=== PATIENT | male | born 1950 | race Caucasian/White ===

== ENCOUNTER 2022-12-28 10:26 | Day surgery (SDC) | payer MEDICARE, SELFPAY ==
[2022-12-28 10:44] VITALS: BP 134/79; PULSE 60; RESP 16; TEMP 36.7; O2SAT 100
[2022-12-28] MEDS: TETRACAINE 0.5% OPHTH 1 DROP EYE-LEFT ×2 (10:45→10:50)
[2022-12-28] MEDS: KETOROLAC OPHTH 0.5% 1 DROP EYE-LEFT ×3 (10:45→10:55)
[2022-12-28] MEDS: SODIUM CHLORIDE 0.9 % (FLUSH) 10 ML SYRINGE IVF (10:50)
[2022-12-28 11:01] VITALS: BMI 23.0
--- NOTE | 2022-12-28 11:04 | SUR.PREOP ---
HOME COVID TEST NEGATIVE
[2022-12-28] MEDS: TETRACAINE 0.5% OPHTH 2 DROP EYE-LEFT (11:32)
[2022-12-28] MEDS: BALANCED SALT IRRIG SOLN 15 ML EYE-LEFT (11:37)
--- NOTE | 2022-12-28 11:39 | P.ANES_ITS ---
Anesthesia Charges Start Date/Time Anesthesia Start Date: 12/28/22 Anesthesia Start Time: 11:28 Stop Date/Time Anesthesia Stop Date: 12/28/22 Anesthesia Stop Time: 12:05 Summary Extremes of Age - Over 70 or under 1: DIGITAL ASSET COORDINATOR
--- NOTE | 2022-12-28 12:04 | W.PM.OPTPROC ---
Procedure Note Date of procedure: 12/28/22 Will [facility] bill your pro fee for this procedure?: Yes Procedure Description: SURGEON: Adilia Altamirano MD PREOPERATIVE DIAGNOSIS: Nuclear sclerotic cataract, left eye. POSTOPERATIVE DIAGNOSIS: Nuclear sclerotic cataract, left eye. NAME OF OPERATION: Phacoemulsification of cataract with posterior chamber intraocular lens implantation in the left eye. ANESTHESIA: Topical. ESTIMATED BLOOD LOSS: Less than 2 cc. COMPLICATIONS: None. PATHOLOGY SPECIMEN: None. INDICATIONS: See consult note for details. The risks, benefits and alternatives of the procedure were explained to the patient, who elected to proceed and signed informed consent to do so. PROCEDURE: The patient was brought to the pre-holding area where the left eye was identified as the operative eye. I placed my initials above this eye. The patient received eye drops consisting of 0.5% tetracaine, 1% tropicamide, 10% phenylephrine, and 0.5% ketorolac. The patient was then brought to the operating room where the left eye was again identified as the operative eye. The eye was prepped with Betadine and draped in the usual sterile ophthalmic fashion. A #15 super-sharp blade was used to create a paracentesis site. 1% non-preserved intracameral lidocaine was injected into the anterior chamber. Endocoat was injected into the anterior chamber. A 2.4 mm keratome was used to create a three-plane self-sealing incision 1 mm anterior to the temporal limbus. A cystotome was used to create an anterior capsular leaflet. The Utrata forceps were used to extend this to form a continuous curvilinear capsulorrhexis. Hydrodissection was performed. The cataract was removed with phacoemulsification using the [id number]-tus-nssgzhn technique. The irrigation and aspiration tip was used to remove the remaining cortex. Healon was injected into the capsular bag. An JADYE ZCB00 intraocular lens of 19.5 diopters was injected into the capsular bag. The irrigation and aspiration tip was used to remove the remaining viscoelastic. Balanced salt solution on a cannula was used to hydrate the wound, and the wound was found to be watertight. The pupil was noted to be round. DISPOSITION: The patient was taken to the recovery room and discharged to home in stable condition. The patient was instructed to call me or go to the emergency department with any sudden change, including dramatic loss of vision, severe pain in the eye or eyebrow region, nausea, or vomiting. The patient will follow up in the clinic tomorrow morning. Surgeon: Adilia Altamirano MD
[2022-12-28 12:08] VITALS: BP 136/84; PULSE 57; RESP 16; TEMP 36.6; O2SAT 97
--- NOTE | 2022-12-28 12:12 | W.ANESCHARGE ---
Anesthesia Charges Start Date/Time Anesthesia Start Date: 12/28/22 Anesthesia Start Time: 11:28 Stop Date/Time Anesthesia Stop Date: 12/28/22 Anesthesia Stop Time: 12:05 Summary Extremes of Age - Over 70 or under 1: MDA
== END 2022-12-28 12:40 | disposition home or self-care (01) ==
PROVIDERS: PCP Family Medicine; Visit Provider Ophthalmology
PROC: (CPT 66984; principal; 2022-12-28 10:30)
DX: H25.12 Age-related nuclear cataract, left eye (principal)
CPT/HCPCS: 66984; 00142; 99100; A9270; J2250; J3010; V2632

== ENCOUNTER 2023-01-11 06:44 | Day surgery (SDC) | payer MEDICARE, SELFPAY ==
[2023-01-11] MEDS: KETOROLAC OPHTH 0.5% 1 DROP EYE-RIGHT ×3 (06:58→07:33)
[2023-01-11] MEDS: TETRACAINE 0.5% OPHTH 1 DROP EYE-RIGHT ×2 (06:58→07:13)
[2023-01-11] MEDS: SODIUM CHLORIDE 0.9 % (FLUSH) 10 ML SYRINGE IVF (07:15)
[2023-01-11 07:22] VITALS: BMI 23.1
[2023-01-11 07:24] VITALS: BP 138/79; PULSE 54; RESP 16; TEMP 37.1; O2SAT 98
--- NOTE | 2023-01-11 07:34 | SUR.PREOP ---
Patient provided home covid negative results to RN. The eye drops brought by the patient (Ketorolac and Prednisolone) are examined and I have determined they are labeled by the patient's pharmacy for this patient as prescribed by the surgeon. The bottles are intact, recently obtained and appear to be correct. Chalo BEDOLLA
--- NOTE | 2023-01-11 07:50 | P.ANES_ITS ---
Anesthesia Charges Start Date/Time Anesthesia Start Date: 01/11/23 Anesthesia Start Time: 07:49 Stop Date/Time Anesthesia Stop Date: 01/11/23 Anesthesia Stop Time: 08:23 Summary Extremes of Age - Over 70 or under 1: CALL CENTER RN
[2023-01-11] MEDS: TETRACAINE 0.5% OPHTH 2 DROP EYE-RIGHT (07:51)
[2023-01-11] MEDS: BALANCED SALT IRRIG SOLN 15 ML EYE-RIGHT (07:56)
[2023-01-11 08:20] VITALS: BP 132/85; PULSE 54; RESP 16; TEMP 36.7; O2SAT 100
--- NOTE | 2023-01-11 09:06 | P.OPTPRC_ITS ---
Procedure Note Date of procedure: 01/11/23 [address] [facility] bill your pro fee for this procedure?: Yes Procedure Description: SURGEON: Adilia Altamirano MD PREOPERATIVE DIAGNOSIS: Nuclear sclerotic cataract, right eye. POSTOPERATIVE DIAGNOSIS: Nuclear sclerotic cataract, right eye. NAME OF OPERATION: Phacoemulsification of cataract with posterior chamber intraocular lens implantation in the right eye. ANESTHESIA: Topical. ESTIMATED BLOOD LOSS: Less than 2 cc. COMPLICATIONS: None. PATHOLOGY SPECIMEN: None. INDICATIONS: See consult note for details. The risks, benefits and alternatives of the procedure were explained to the patient, who elected to proceed and s igned informed consent to do so. PROCEDURE: The patient was brought to the pre-holding area where the right eye was identified as the operative eye. I placed my initials above this eye. The patient received eye drops consisting of 0.5% tetracaine, 1% tropicamide, 10% phenylephrine, and 0.5% ketorolac. The patient was then brought to the operating room where the right eye was again identified as the operative eye. The eye was prepped with Betadine and draped in the usual sterile ophthalmic fashion. A #15 super-sharp blade was used to create a paracentesis site. 1% non-preserved intracameral lidocaine was injected into the anterior chamber. Endocoat was injected into the anterior chamber. A 2.4 mm keratome was used to create a three-plane self-sealing incision 1 mm anterior to the temporal limbus. A cystotome was used to create an anterior capsular leaflet. The Utrata forceps were used to extend this to form a continuous curvilinear capsulorrhexis. Hydrodissection was performed. The cataract was removed with phacoemulsification using the shtlsu-etd-obfswgh technique. The irrigation and aspiration tip was used to remove the remaining cortex. Healon was injected into the capsular bag. An JAYDE ZCB00 intraocular lens of 18.0 diopters was injected into the capsular bag. The irrigation and aspiration tip was used to remove the remaining viscoelastic. Balanced salt solution on a cannula was used to hydrate the wound, and the wound was found to be watertight. The pupil was noted to be round. DISPOSITION: The patient was taken to the recovery room and discharged to home in stable condition. The patient was instructed to call me or go to the emergency department with any sudden change, including dramatic loss of vision, severe pain in the eye or eyebrow region, nausea, or vomiting. The patient will follow up in the clinic tomorrow morning. Surgeon: Adilia Altamirano MD
== END 2023-01-11 08:43 | disposition home or self-care (01) ==
PROVIDERS: PCP Family Medicine; Visit Provider Ophthalmology
PROC: (CPT 66984; principal; 2023-01-11 06:45)
DX: H25.11 Age-related nuclear cataract, right eye (principal)
CPT/HCPCS: 66984; 142; 99100; A9270; J2250; J3010; V2632

== ENCOUNTER 2024-03-20 10:23 | Inpatient (IN) | payer MEDICARE, SELFPAY ==
--- OUTSIDE RECORDS SUMMARY | 2024-03-20 10:35 | XMS_ITS | Clinical Summary ---
Author Name Unknown Organization [facility] Address [address] [place] [address] Care Team Providers Care Refueling Ramp Attendant Name Role Phone Shin Carrington Primary Care Provider Unavailab le Source Comments You are receiving this document as you are listed as the primary care provider,follow-up provider, or the patient has been referred to you for consultation.This is in compliance with the Medicare andMedicaid EHR Incentive Program,which states Providers who transition their patient to another setting of careor provider of care or refers their patient to another provider of care shouldprovide summary care record for each transition of care or referral. 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 01/08/2024 Telephone [facility] [address] [place] [address] Harika Ardon Clinical Research from Last 3 Months Social History Tobacco Use Types Packs/Day Years Used Date Smoking Tobacco: Never Assessed Sex and Gender Information Value Date Recorded Sex Assigned at Not on file Gender Identity Not on file Sexual Orientation Not on file Plan of Treatment Health Maintenance Due Date Last Done Comments Colon Cancer Screening Plan Due 1950 Hep C Screening (Preventive Services) 1950 Adult Preventive Visit 1966 COVID-19 Vaccine ( season) 2024 09/05/2023, 04/17/2023, 07/29/2022, Additional history exists DTaP/Tdap/Td (3 - Tdap) 12/21/2032 12/21/19 23, 08/14/2012, 07/07/2008, Additional history exists HepA Aged Out 05/21/1999, 11/10/1997 No lo nger eligible based on patient's age to complete this topic Zoster/Shingles Completed 09/25/2020, 02/2020, 08/14/2012 Pneumococcal 65+ Yrs Completed 12/19/2022, 08/29/2016, 12/17/2015 Influenza Completed 09/05/2023, 07/14, 09/03/2021, Additional history exists HepB Aged Out No longer eligi ble based on patient's age to complete this topic Hib Aged Out No longer eligi ble based on patient's age to complete this topic IPV (Polio) Aged Out No longer eligi ble based on patient's age to complete this topic MCV4 Aged Out No longer eligi ble based on patient's age to complete this topic Care Teams Refueling Ramp Attendant Relationship Specialty Start Date End Date Shin Carrington PCP - General 02/14/11
--- OUTSIDE RECORDS SUMMARY | 2024-03-20 10:36 | XMS_ITS | Encounter Summary ---
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 This is the gene test results visit. He is participating by telephone. His Daisy ws present as well. Adverse events since the last visit include: none. I believe that the patient is cognitively capable of providing consent for continued participation in the study. Other comments about medication use or study participation: none. Other life events of note: none Objective: Examination procedures were completed according to the research protocol. Highlights include: the patient was not examined, other than to note that he seemed to understand the meaning of the results for self and other family members. The gene test results were normal. Impression/Plan: Parkinson's disease, not due to a mutation in GBA, LRRK2, SNCA, stewart, PARK7, PINK1, or VPS35. The patient has completed participation in this study. Contact Preeti Singh (research nurse) at if there are any questions about this patient, the study medication, or participation inthe research study. 10 min tt, 6 min with the pt Copy: Dr. 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
--- OUTSIDE RECORDS SUMMARY | 2024-03-20 10:36 | XMS_ITS | Clinical Summary ---
Author Name Unknown Organization [facility] Address [place], [place] [address] Care Team Providers Care It Sales Representative Name Role Phone Shin Stack MD Primary Care Provider Allergies No known active allergies Medications Medication Sig Dispensed Refills Start Date End Date Status multivitamins-minerals- lutein (CENTRUM SILVER) Tab tablet Take 1 tablet by mouth once daily. 0 08/14/2012 Active amLODIPine (NORVASC) 5 mg tabletIndications:Essen tial hypertension Take 1 Tablet (5 mg) by mouth once daily. 90 Tablet 3 05/23/2023 Active carbidopa-levodopa, 25-100 mg, (SINEMET 25-100) 25-100 mg tabletIndications:Parki nson's disease without dyskinesia, unspecified whether manifestations fluctuate (HC) TAKE ONE TABLET BY MOUTH 4 TIMES DAILY 120 Tablet 3 12/05/2023 Active Active Problems Problem Noted Date Diagnosed Date Parkinson's disease 11/13/2022 Superficial thrombophlebitis : 05/17/2022 right SVG knee to ankle. 05/17/2022 Essential hypertension 02/25/2021 Sensorineural hearing loss, bilateral 06/20/2013 SBO, Laparotomy in [place] 2008. 06/18/2009 Overview: EGD 06/2009 normal Resolved Problems Problem Noted Date Diagnosed Date Resolved Date Routine adult health maintenance 09/18/2019 02/25/2021 Routine general medical exam ination at a health care facility 09/18/2019 02/25/2021 Overview: Colonoscopy 09/2019 normal, repeat in 10 years Encounters Date Type Department Care Team Description 03/20/2024 8:30 AM CDT Ancillary Procedure [facility] [address] [place] [address] Arrived 03/20/2024 8:15 AM CDT Orders Only [facility] [address] [place] [address] Lab, [place] Lab 03/19/2024 4:00 PM CDT Office Visit [facility] [address] [place] [address] Haritha Quiñonez MD Consult (Right inguinal hernia referred by Sreekanth Vasquez) 03/19/2024 Travel 03/13/2024 3:45 PM CDT Office Visit [facility] [address] [place] [address] Shin Stack MD Lump (In groin area, left side, noticed about 5 weeks ago, getting bigger, no pain) 03/13/2024 Travel 03/08/2024 Travel 01/30/2024 9:40 AM CDT Office Visit [facility] [place] [facility] [address] [place] [address] Jesús Knowles MD Follow Up (Follow up tremor ) 01/30/2024 Travel from Last 3 Months Immunizations Name Administration Dates Next Due Amb Influenza, Inact (High-d ose) (Flu Clinic Only) 08/22/2016,09/12/2014 COVID-19 Vaccine Spikevax (M oderna 50mcg/0.5mL) 12YO+ [id number] Formula PF 03/13/2024,09/05/2023 COVID-19 vaccine (Moderna 10 0mcg/0.5mL) PF, MDV 01/26/2021,12/29/2020 COVID-19 vaccine (Moderna 50 mcg/0.5mL) 12YO+ BIVALENT PF, MDV 04/17/2023,07/29/2022 Hepatitis A (Adult) 05/21/1999,11/10/1997 Hepatitis B (Adult) 03/26/2012,10/24/2011,2010 Influenza A (H1N1), Inactivated 11/24/2009 Influenza, High-dose Inactivated 08/22/2016,07/2015,09/12/2014 Influenza, High-dose Quadriv alent Inactivated 09/03/2021 Influenza, IIV3 (Age 6-35 mos) 09/23/2011 Influenza, IIV3 (Age >=3 years) 08/14/2012,09/23 Influenza, Inactivated AIIV4 (Age 65+ Years) Preserv Free 09/05/2023,07/29/2022,08/14/2020 Influenza, Inactivated IIV3 (Age 65+ Years) Preserv Free 08/21/2019,07/28/2017 Pneumococcal Conj 20-valent (Prevnar 20) 023 Pneumococcal Poly,23-Valent (Pneumovax) 08/29/20 16 Pneumococcal conj 13-Valent (Prevnar 13) 016 RSV, Recombinant ADJ Reconst ituted (Arexvy 120MCG/0.5mL) 10/16/2023 Td (Age >=7 Years) 08/13/1997 Td, Preservative Free (age >= 7 Years) 8 Tdap 12/21/2022,08/14/2012 Typhoid (injectable) 03/02/2018 Typhoid (oral) 09/02/2011 Yellow Fever 12/31/2004 Zoster (Shingrix-RZV, recombinant) 09/25/2020, Zoster (Zostavax-ZVL, live) 08/14/2012 Family History Medical History Relation Name Comments Psychiatric illness Brother 1 bipolar Cancer-prostate Brother 2 Parkinsonism Brother 3 at 83 Cancer Father Stomach in his 60's Heart Disease Father [place] in his 60's Other Mother liver ca Anesthesia Problem No Family History Cancer-colon No Family History Diabetes No Family History Relation Name Status Comments Brother 1 Brother 2 Brother 3 Father Mother (Age 80's) multi-or krystle failure Social History Tobacco Use Types Packs/Day Years Used Date Smoking Tobacco: Never Smokeless Tobacco: Never Tobacco Cessation:Counseling Given: No Alcohol Use Standard Drinks/Week Comments Yes 5 (1 standard drink = 0.6 oz pur e alcohol) 5 beers per week PHQ-2 Answer Date Recorded PHQ-2 TOTAL SCORE 0 05/23/2023 Social Connections Answer Date Recorded Frequency of Communication with Friends and Fami ly 0 05/23/2023 Financial Resource Strain Answer Date R ecorded Difficulty of Paying Living Expenses 3 05/23/2023 Difficulty of Paying Living Expenses Not on file 05/23/2023 Food Insecurity Answer Date Recorded Worried About Running Out of Food in the Last Ye ar 1 05/23/2023 Transportation Needs Answer Date Record ed Lack of Transportation (Medical) 1 05/23/2023 Housing Stability Answer Date Recorded Unable to Pay for Housing in the Last Year 1 05/23/2023 Sex and Gender Information Value Date Recorded Sex Assigned at Male 01/12/2022 9:48 AM CRYSTALIZER TENDER Gender Identity Male 01/12/2022 9:48 AM CRYSTALIZER TENDER Sexual Orientation Choose not to disclose 2021 9:48 AM CRYSTALIZER TENDER Obstetrics History Last Filed Vital Signs Vital Sign Reading Time Taken Comments Blood Pressure 137/71 03/19/2024 4:19 PM CDT Pulse 58 03/19/2024 4:19 PM CDT Temperature 36.8 ??C (98.2 ??F) 09/30/2020 1:31 PM CS T Respiratory Rate 18 11/03/2014 7:54 AM CRYSTALIZER TENDER Oxygen Saturation 97% 03/19/2024 4:19 PM CDT Inhaled Oxygen Concentration - - Weight 67.1 kg (148 lb) 03/19/2024 4:19 PM CDT w ith shoes Height 174.7 cm (5' 8.78) 05/23/2023 2:09 PM CD T Body Mass Index 22 05/23/2023 2:09 PM CDT Plan of Treatment Upcoming Encounters Date Type Department Care Team (Late st Contact Info) Description 05/17/2024 8:00 AM CDT Orders Only [facility] [address] [place] [address] [place], [place] 05/24/2024 2:55 PM CDT Office Visit [facility] [address] [facility] [place] [address] Shin Stack MD [address] [facility] [place] [address] 10/01/2024 9:00 AM CRYSTALIZER TENDER Office Visit [facility] [place] [facility] [address] [place] [address] Jesús Knowles MD [address] [place] [address] Health Maintenance Due Date Last Done Comments BMI (ht and wt on same day) for age 18+ 05/23/2024 05/23/2023, 12/19/2022, 03/02/2022, Additional history exists Depression screening for age 12+ 05/23/2024 05/23/2023, 03/02/2022, 02/25/2021, Additional history exists Medicare Wellness for age 65+ 05/23/2024, 03/02/2022, 02/25/2021, Additional history exists Influenza for age 65+ 07/14/2024 09/05/2023 , 07/29/2022, 09/03/2021, Additional history exists Lipids for age 45-75 05/23/2028 05/23/2023, 02/25/2021, 01/01/2020, Additional history exists Colonoscopy through age 75 09/18/202909/18, 09/18/2019, 09/18/2019, Additional history exists Tetanus booster 12/21/2032 12/21/2022, 12/2011, 07/07/2008, Additional history exists Hepatitis C screening for ag e 18-79 Completed 08/10/2017 Zoster (shingles) series for age 50+ Completed 09/25/2020, 07/17/2020, 08/14/2012 Pneumococcal series for age 65+ Completed 12/19/2022, 08/29/2016, 12/17/2015 Tdap Completed 12/21/2022, 08/14/2012 COVID-19 vaccine series Completed 03/13/20, 09/05/2023, 04/17/2023, Additional history exists Procedures Procedure Name Priority Date/Time Associated Diagnosis Comments CT ABDOMEN PELVIS W IESHA 03/20/2024 9 :24 AM CDT Abdominal pain, unspecified abdominal location CREATININE,ISTAT Routine 03/20/2024 8:50 AM CDT Observation or evaluation for suspected condition CBC WITH AUTO DIFFERENTIAL Routine 03/19/2024 5:06 PM CDT Abdominal pain, unspecified abdominal location CBC WITH AUTO DIFFERENTIAL Routine 03/19/2024 5:06 PM CDT Abdominal pain, unspecified abdominal location LIPID PANEL W REFLEX MEASURED LDL Routine 05/23/2023 3:01 PM CDT Lipid screening COLONOSCOPY 09/18/2019 8:31 AM CRYSTALIZER TENDER ANTI HCV Routine 08/10/2017 7:49 AM CDT Encounter for hepatitis C screening test for low risk patient from Last 3 Months or Most Recently Relevant to Health Maintenance Results * CT ABDOMEN PELVIS W (03/20/2024 9:24 AM CDT) Anatomical Region Laterality Modality Abdomen, Pelvis, AORTA, LIVER, SPLEEN Computed Tomography 03/20/2024 9:52 AM CDT Addenda Addendum by Eulalia Perez DO on 03/20/2024 10:13 AM CDT Indication: Abdominal pain. Technique: CT of the abdomen and pelvis was performed following the administration of 100 mL Omnipaque 350. 24 ounces of water was given by mouth. Comparison: None available. Findings: Visualized lung bases: Clear. Liver: Mild hepatic steatosis. Too small to characterize hypodensities within both hepatic lobes. There are similar appearing lobulated hypodense lesions within hepatic segment 2 measuring 4.0 x 4.2 cm as well as within hepatic segment 8 inferiorly measuring up to 9 mm. Peripheral nodular discontinuous enhancement is seen within these lesions compatible with hemangiomas. Indeterminate hypodense lesion between the middle and right hepatic veins in segment 8 measuring 1.3 cm. There is suggestion of punctate peripheral nodular discontinuous enhancement involving this lesion as well. Hyperdense gallstones within the gallbladder neck and body. No pericholecystic inflammatory changes. No biliary ductal dilation. Pancreas: Unremarkable. Spleen: Unremarkable. Adrenals: Unremarkable. Kidneys: Symmetric renal enhancement. Left interpolar renal cyst. No nephrolithiasis or hydronephrosis. Aorta/IVC: Mild atherosclerotic aortic calcifications with tortuous abdominal aorta. No aortic aneurysm. Lymph nodes: No lymphadenopathy. Bowel: Moderate colonic fecal burden. Normal appendix. There is a small loop of ileum in the mid abdomen with tapering proximal and distal ends in close proximity to 1 another (series 2, image 72 and series 4 images 34-44). Upstream small bowel is dilated measuring up to 3.5 cm. No appreciable mesenteric edema. Trace pelvic free fluid. No intraperitoneal free air. No definite evidence of bowel wall hypoenhancement. Pelvis: Enlarged prostate measuring 6 cm in transverse dimension. Bones/body wall: Mild multilevel degenerative disc disease. Impression: 1. Dilated loops ileum in the mid and lower abdomen upstream to a focal loop of bowel with tapered proximal and distal portions in close proximity to one another. Findings are concerning for small bowel obstruction with possible closed loop morphology. Recommend Emergency Department evaluation with surgical consultation for further management. 2. Hepatic hemangiomas with indeterminate 1.3 cm lesion in hepatic segment 8, which may represent an additional hemangioma. Recommend correlation with prior imaging to determine stability, if available. Otherwise, nonemergent liver protocol CT or MRI is recommended. 3. Additional chronic/incidental findings as described. Please note that all CT scans at this facility use dose modulation, iterative reconstruction, and/or weight-based dosing when appropriate to reduce radiation dose to as low as reasonably achievable. Dictated by Eulalia Perez MD @ 03/20/2024 9:52:35 AM ----- ADDENDUM ----- Discussed Impression [address] Quiñonez on 03/20/2024 at 10:05 a.m. Dictated by Eulalia Perez MD @ May ??2023 10:13AM (Electronically Signed) Narrative 03/20/2024 9:52 AM CDT For Patients: ??As a result of the Century Cures Act, medical imaging exams and procedure reports are released immediately into your electronic medical record. ??You may view this report before your referring provider. ??If you have questions, please contact your health care provider. Indication: Abdominal pain. Technique: CT of the abdomen and pelvis was performed following the administration of 100 mL Omnipaque 350. 24 ounces of water was given by mouth. Comparison: None available. Findings: Visualized lung bases: Clear. Liver: Mild hepatic steatosis. Too small to characterize hypodensities within both hepatic lobes. There are similar appearing lobulated hypodense lesions within hepatic segment 2 measuring 4.0 x 4.2 cm as well as within hepatic segment 8 inferiorly measuring up to 9 mm. Peripheral nodular discontinuous enhancement is seen within these lesions compatible with hemangiomas. Indeterminate hypodense lesion between the middle and right hepatic veins in segment 8 measuring 1.3 cm. There is suggestion of punctate peripheral nodular discontinuous enhancement involving this lesion as well. Hyperdense gallstones within the gallbladder neck and body. No pericholecystic inflammatory changes. No biliary ductal dilation. Pancreas: Unremarkable. Spleen: Unremarkable. Adrenals: Unremarkable. Kidneys: Symmetric renal enhancement. Left interpolar renal cyst. No nephrolithiasis or hydronephrosis. Aorta/IVC: Mild atherosclerotic aortic calcifications with tortuous abdominal aorta. No aortic aneurysm. Lymph nodes: No lymphadenopathy. Bowel: Moderate colonic fecal burden. Normal appendix. There is a small loop of ileum in the mid abdomen with tapering proximal and distal ends in close proximity to 1 another (series 2, image 72 and series 4 images 34-44). Upstream small bowel is dilated measuring up to 3.5 cm. No appreciable mesenteric edema. Trace pelvic free fluid. No intraperitoneal free air. No definite evidence of bowel wall hypoenhancement. Pelvis: Enlarged prostate measuring 6 cm in transverse dimension. Bones/body wall: Mild multilevel degenerative disc disease. Impression: 1. Dilated loops ileum in the mid and lower abdomen upstream to a focal loop of bowel with tapered proximal and distal portions in close proximity to one another. Findings are concerning for small bowel obstruction with possible closed loop morphology. Recommend Emergency Department evaluation with surgical consultation for further management. 2. Hepatic hemangiomas with indeterminate 1.3 cm lesion in hepatic segment 8, which may represent an additional hemangioma. Recommend correlation with prior imaging to determine stability, if available. Otherwise, nonemergent liver protocol CT or MRI is recommended. 3. Additional chronic/incidental findings as described. Please note that all CT scans at this facility use dose modulation, iterative reconstruction, and/or weight-based dosing when appropriate to reduce radiation dose to as low as reasonably achievable. Dictated by Eulalia Perez MD @ 03/20/2024 9:52:35 AM (Electronically Signed) Procedure Note Eulalia Perez, DO - 03/20/2024 For Patients: As a result of the Cures Act, medical imagingexams and procedure reports are released immediately into your electronicmedical record. You may view this report before your referring provider.If you have questions, please contact your health care provider. Indication: Abdominal pain. Technique: CT of the abdomen and pelvis was performed following the administration of100 mL Omnipaque 350. 24 ounces of water was given by mouth. Comparison: None available. Findings: Visualized lung bases: Clear. Liver: Mild hepatic steatosis. Too small to characterize hypodensitieswithin both hepatic lobes. There are similar appearing lobulated hypodenselesions within hepatic segment 2 measuring 4.0 x 4.2 cm as well as withinhepatic segment 8 inferiorly measuring up to 9 mm. Peripheral nodulardiscontinuous enhancement is seen within these lesions compatible withhemangiomas. Indeterminate hypodense lesion between the middle and righthepatic veins in segment 8 measuring 1.3 cm. There is suggestion ofpunctate peripheral nodular discontinuous enhancement involving thislesion as well. Hyperdense gallstones within the gallbladder neck andbody. No pericholecystic inflammatory changes. No biliary ductal dilation. Pancreas: Unremarkable. Spleen: Unremarkable. Adrenals: Unremarkable. Kidneys: Symmetric renal enhancement. Left interpolar renal cyst. Nonephrolithiasis or hydronephrosis. Aorta/IVC: Mild atherosclerotic aortic calcifications with tortuousabdominal aorta. No aortic aneurysm. Lymph nodes: No lymphadenopathy. Bowel: Moderate colonic fecal burden. Normal appendix. There is a smallloop of ileum in the mid abdomen with tapering proximal and distal ends inclose proximity to 1 another (series 2, image 72 and series 4 -93). Upstream small bowel is dilated measuring up to 3.5 cm. Noappreciable mesenteric edema. Trace pelvic free fluid. No intraperitonealfree air. No definite evidence of bowel wall hypoenhancement. Pelvis: Enlarged prostate measuring 6 cm in transverse dimension. Bones/body wall: Mild multilevel degenerative disc disease. Impression: 1. Dilated loops ileum in the mid and lower abdomen upstream to a focalloop of bowel with tapered proximal and distal portions in close proximityto one another. Findings are concerning for small bowel obstruction withpossible closed loop morphology. Recommend Emergency Department evaluationwith surgical consultation for further management. 2. Hepatic hemangiomas with indeterminate 1.3 cm lesion in hepatic segment8, which may represent an additional hemangioma. Recommend correlationwith prior imaging to determine stability, if available. Otherwise,nonemergent liver protocol CT or MRI is recommended. 3. Additional chronic/incidental findings as described. Please note that all CT scans at this facility use dose modulation,iterative reconstruction, and/or weight-based dosing when appropriate toreduce radiation dose to as low as reasonably achievable. Dictated by Eulalia Perez MD @ 03/20/2024 9:52:35 AM (Electronically Signed) Haritha Quiñonez MD CT * (ABNORMAL) CREATININE,ISTAT (03/20/2024 8:50 AM CDT) Pathologist [facility] CREATININE, POCT 1.70(H) 0.57 - 1.11 mg/dL 03/20/2024 8:52 AM CDT [facility] Comment:Caution: Patients ta collin Hydroxyurea have falsely increased iStat Creatinine results. Verify creatinine results ordering a Creatinine (67923.2) eGFR 42(L) >90 mL/min/1.7 3m2 03/20/2024 8:52 AM CDT [facility] Comment:As of 2022, eG FR is calculated by the CKD-EPI creatinine equation without race adjustment. eGFR can be influenced by muscle mass, exercise, and diet. The reported eGFR is an estimation only and is only applicable if the renal function is stable. Blood BLOOD SPECIMEN / Unknown 03/20/2024 8:50 AM CDT 03/20/2024 8:52 AM CDT Haritha Quiñonez MD CHEMISTRY [facility] [address] [place] [address], [place] [phone] * (ABNORMAL) CBC WITH AUTO DIFFERENTIAL (03/19/2024 5:06 PM CDT) [facility] WHITE BLOOD COUNT 9.8 4.5 - 11.0 thou/cu mm 03/19/2024 5:15 PM CDT [facility] RED BLOOD COUNT 4.99 4.30 - 5.90 mil/cu mm 03/19/2024 5:15 PM CDT [facility] HEMOGLOBIN 15.7 13.5 - 17.5 g/dL 03/19/2024 5:15 PM CDT [facility] HEMATOCRIT 45.4 37.0 - 53.0 % 03/19/2024 5:15 PM CDT [facility] MCV 91 80 - 100 fL 03/19/2024 5:15 PM CDT [facility] MCH 31.5 26.0 - 34.0 pg 03/19/2024 5:15 PM CDT [facility] MCHC 34.6 32.0 - 36.0 g/dL 03/19/2024 5:15 PM CDT [facility] RDW 13.0 11.5 - 15.5 % 03/19/2024 5:15 PM CDT [facility] PLATELET COUNT 201 140 - 440 thou/cu mm 03/19/2024 5:15 PM CDT [facility] MPV 9.5 6.5 - 11.0 fL 03/19/2024 5:15 PM CDT [facility] % NEUT 83.9 % 03/19/2024 5:15 PM CDT [facility] % LYMPH 11.2 % 03/19/2024 5:15 PM CDT [facility] % MONO 4.4 % 03/19/2024 5:15 PM CDT [facility] % EOS 0.2 % 03/19/2024 5:15 PM CDT [facility] % BASO 0.3 % 03/19/2024 5:15 PM CDT [facility] ABSOLUTE NEUTROPHILS 8.2(H) 1.7 - 7.0 thou/cu mm 03/19/2024 5:15 PM CDT [facility] ABSOLUTE LYMPHOCYTES 1.1 0.9 - 2.9 thou/cu mm 03/19/2024 5:15 PM CDT [facility] ABSOLUTE MONOCYTES 0.4 <0.9 thou/cu mm 03/19/2024 5:15 PM CDT [facility] ABSOLUTE EOSINOPHILS 0.0 <0.5 thou/cu mm 03/19/2024 5:15 PM CDT [facility] ABSOLUTE BASOPHILS 0.0 <0.3 thou/cu mm 03/19/2024 5:15 PM CDT [facility] Blood BLOOD SPECIMEN / Unknown Venipuncture / Unknown 03/19/2024 5:06 PM CDT 03/19/2024 5:06 PM CDT Haritha Quiñonez MD HEMATOLOGY [facility] [address] [place] [address], [place] [phone] * LIPID PANEL W REFLEX MEASURED LDL (05/23/2023 3:01 PM CDT) CHOLESTEROL,TOTAL 186 100 - 199 mg/dL 05/24/2023 2:02 AM T [facility] Comment: Cholesterol, Total Reference Ranges Desirable <200 mg/dL Borderline 200-239 mg/dL High >=240 mg/dL TRIGLYCERIDES 99 <150 mg/dL 05/24/2023 2:02 AM T [facility] HDL CHOLESTEROL 57 >40 mg/dL 2:02 AM [facility] NON-HDL CHOLESTEROL 129 <145 mg/dl 05/24/2023 2:02 AM T [facility] CHOL/HDL RATIO 3.26 <4.50 05/24/2023 2:02 AM T [facility] LDL CHOLESTEROL 109 <=130 mg/dL 05/24/2023 2:02 AM T [facility] VLDL CHOLESTEROL 20 <=30 mg/dL 05/24/2023 2:02 AM [facility] PROVIDER ORDERED STATUS RANDOM 05/24/2023 2:02 AM CDT [facility] Blood BLOOD SPECIMEN / Unknown Venipuncture / Unknown 05/23/2023 3:01 PM CDT 05/23/2023 3:02 PM CDT Shin Stack MD CHEMISTRY [facility] [address] [place] [address], [place] * COLONOSCOPY (09/18/2019 8:31 AM CRYSTALIZER TENDER) 09/18/2019 8:31 AM CRYSTALIZER TENDER Narrative Transcriptions Jeromy Issa MD - 09/18/2019 9:27 AM CST Patient Name: Pete Garcia Procedure Date: 09/18/2019 Gender: Male Date of : 1950 Admit Type: Outpatient Procedure: Colonoscopy Proceduralist: Jeromy Issa MD , Tamiko Catalan (Nurse) Indications/Pre-Op Diagnosis: Screening for colorectal malignant neoplasm, Last colonoscopy: July 2018 Medications: Fentanyl 100 micrograms IV, Midazolam 2 mgIV, The level of sedation administered wasmoderate Procedure Description: The patient had risks, benefits and alternatives explained to andgave informed consent. The patient had a stable cardiopulmonary status and judged an adequate candidate for conscious sedation. The [id number] was passed through the anus and advanced tothe cecum, identified by appendiceal orifice and ileocecal valve. The colonoscopy was performed without difficulty. The patient toleratedthe procedure well. The quality of the bowel preparation was good. The ileocecal valve, appendiceal orifice, and rectum were photographed. Complications: No immediate complications. Estimated Blood Loss & Specimen: Estimated blood loss: none. Specimen collected - None Findings: The perianal and digital rectal examinations were normal. The entire examined colon appeared normal on direct and retroflexion views. Impressions/Post-Op Diagnosis: - The entire examined colon is normal on direct and retroflexionviews. - No specimens collected. Recommendation: - Patient has a contact number available for emergencies. The signsand symptoms of potential delayed complications were discussed with the patient. Return to normal activities tomorrow. Written discharge instructions were provided to the patient. - Resume previous diet. - Continue present medications. - Repeat colonoscopy in 10 years for screening purposes. Moderate Sedation: Moderate (conscious) sedation was administered by the endoscopy nurse and supervised by the endoscopist. The following parameters were monitored: oxygen saturation, heart rate, respiratory rate, blood pressure, adequacy of pulmonary ventilation and reponse to care. Please [facility] flow[facility]ets and nursing notes for moderate sedation details. Total physician intraservice time was 16 minutes. Jeromy Issa MD 09/18/2019 9:27:04 AM This report has been signed electronically. Note Initiated On: 09/18/2019 8:31 AM Procedure Code(s): --- Professional --- 76258, Colonoscopy, flexible; diagnostic, including collection of specimen(s) bybrushing or washing, when performed (separateprocedure) Diagnosis Code(s): --- Professional --- Z12.11, Encounter for screening formalignant neoplasm of colon CPT copyright 2018 [employer]. All rights reserved. The codes documented in this report are preliminary and upon local operator reviewmay be revised to meet current compliance requirements. Scope In: 9:09:13 AM Scope Withdrawal Time 0 hours 7 minutes 48 seconds Scope Out: 9:23:53 AM Jeromy Issa MD PROCEDURE ORD * ANTI HCV (08/10/2017 7:49 AM CDT) HEPATITIS C ANTIBODY Non-Reacti ve Non-Reacti ve 08/10/2017 3:49 PM CDT [facility] Blood BLOOD SPECIMEN / Unknown Venipuncture / Unknown 08/10/2017 7:49 AM CDT 08/10/2017 7:49 AM CDT Narrative [facility] - 08/10/2017 3:49 PM CDT Antibodies to HCV not detected; does not exclude the possibility of exposure to HCV. Mohit Kapadia MD SEND OUTS [facility] 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
--- OUTSIDE RECORDS SUMMARY | 2024-03-20 10:36 | XMS_ITS | Encounter Summary ---
Author Name Unknown Organization [facility] Address [address] [place] [address] Care Team Providers Care Spanish Teacher Name Role Phone Shin Carrington Primary Care Provider Unavailab le Reason for Visit * Reason Comments Clinical Research Encounter Details Date Type Department Care Team (Late st Contact Info) Description 01/08/2024 Telephone [facility] [address] [place] [address] Harika Ardon Clinical Research Social History Tobacco Use Types Packs/Day Years Used Date Smoking Tobacco: Never Assessed Sex and Gender Information Value Date Recorded Sex Assigned at Not on file Gender Identity Not on file Sexual Orientation Not on file documented as of this encounter Nursing Notes * Harika Ardon - 01/08/2024 10:18 AM CST Appointment scheduling for [facility]ing with Dr. Amelia Hidalgo. ER documented in this encounter Plan of Treatment Not on file documented as of this encounter Visit Diagnoses Not on filedocumented in this encounter Care Teams Spanish Teacher Relationship Specialty Start Date End Date Shin Carrington PCP - General 02/14/11 documented as of this encounter
[2024-03-20 11:05] VITALS: BP 125/73; PULSE 64; RESP 20; TEMP 36.4; O2SAT 98; BMI 22.1
[2024-03-20] MEDS: LACTATED RINGERS 1000 ML 1,000 ML 125 ML IV ×2 (12:09→19:54)
[2024-03-20 12:13] LABS: Basophils Absolute Auto 0.04 K/uL (0.00-0.30); Basophils Percent Auto 0.4 % (0.0-3.0); Eosinophils Absolute Auto 0.11 K/uL (0.00-0.50); Eosinophils Percent Auto 1.1 % (0.0-7.0); Hematocrit 43.4 % (37.0-53.0); Hemoglobin* 14.7 gm/dL (13.5-17.5); Immature Granulocytes Abs Auto 0.06 K/uL (0.00-0.30); Immature Granulocytes Pct Auto 0.6 %; Lymphocytes Percent Auto 9.9 % (20-44); Mean Corpuscular HGB Conc 34 gm/dL (32-36); Mean Corpuscular Hemoglobin 31 pg (26-34); Mean Corpuscular Volume 91 fL (80-100); Monocytes Percent Auto 7.5 % (0.0-11.0); Neutrophils Percent Auto 80.5 % (42.0-72.0); Platelet Count* 199 K/uL (140-440); RDW Coefficient of Variation % 12.2 % (11.5-15.5); Red Blood Count 4.78 m/uL (4.30-5.90); White Blood Count* 10.05 K/uL (4.50-11.00)
--- NOTE | 2024-03-20 12:18 | PM.GSHP ---
History of Present Illness History of Present Illness Date Seen: 03/20/24 Chief complaint: Bowel Obstruction Narrative: Pete Garcia is a 73 year old male who was admitted to the hospital today after CT scan from clinic showed a bowel obstruction. The patient was in his usual state of health until yesterday morning when he developed crampy abdominal pain. He had recently noticed a recurrence of a right inguinal hernia and had been scheduled for a surgery consult. Coincidentally he developed this abdominal pain. He had a bowel movement around noon and his pain improved to about a 3 of 4/10, however it was concerning to him because he has had similar pain in the past, specifically in 2007 when he was traveling in [place] he developed an incarcerated right inguinal hernia and underwent laparotomy and resection of necrotic bowel. This resulted in a very prolonged hospital stay. He has not had any discomfort with his hernia and it was reducible. Because of his visit scheduled at the end of the day, CT scan was not available. Labs were drawn which revealed a normal white blood cell count. He was instructed to present to the emergency department if his pain worsened otherwise a CT scan was scheduled for this morning. He states that he had worsening pain last evening. It was a 7/10. Then around 5:00 a.m. he states he had a blowout of stool which was loose and large and his pain subsided. He went in to get the CT scan which showed a bowel obstruction with a transition point and also possible closed loop. He was noted to have a slightly elevated creatinine of 1.7. This is above his baseline. he states that he drink 32 oz of water for the CT scan and then after that had a smoothie as well as an anguish muffin and then he began having some discomfort again however he describes his pain as currently a 1/10. He has had a small amount of nausea but minimal. No vomiting. He has not been passing flattest since he was admitted. He has not had a bowel obstruction since 2007 with the incarcerated hernia. [facility] Medical History (Updated 03/20/24 @ 13:45 by Yessica Corrales MD) Parkinson's disease ?G20.A1 - Parkinson's disease without dyskinesia, without mention of fluctuations (ICD-10) Superficial vein thrombosis ?I82.890 - Acute embolism and thrombosis of other specified veins (ICD-10) Ischemic optic neuropathy ?H47.019 - Ischemic optic neuropathy, unspecified eye (ICD-10) BRVO (branch retinal vein occlusion) ?H34.8392 - Tributary (branch) retinal vein occlusion, unspecified eye, stable (ICD-10) HTN (hypertension) ?I10 - Essential (primary) hypertension (ICD-10) Surgical History (Updated 03/20/24 @ 14:13 by Haritha Quiñonez MD) S/P cataract extraction ?Z98.49 - Cataract extraction status, unspecified eye (ICD-10) S/P laparotomy ?Z98.890 - Other specified postprocedural states (ICD-10) Social History (Updated 03/20/24 @ 14:14 by Haritha Quiñonez MD) Narrative: He does not smoke. He drinks 5 alcoholic drinks per week. He is retired, previously working in [employer]. He boxes twice weekly. What is your current living situation?: I presently have a place to live Problems where you live: no known problems Problems where you live details: none In the past 12 months, utilities in danger of being shut off: no In past 12 months, lack of transportation kept you from medical appts, meetings, work, or getting things needed for daily living: no In the past 12 mos, have been you worried that your food would run out before you had money to buy more?: never true In the past 12 mos, the food you bought just didn't last and you didn't have money to buy more?: never true Highest level of school completed/degree received: Master's degree Smoking Status: Never smoker Do you use any of these nicotine containing products: None How often do you have a drink containing alcohol: 2-4 times a month Alcohol type: beer How many standard drinks containing alcohol do you have on a typical day: 5 or 6 AUDIT-C Alcohol total score: 4 Non-prescribed substance use: denies use Caffeine: No How often does anyone, including family, friends and others, physically hurt you: never How often does anyone, including family, friends and others, insult or talk down to you: never How often does anyone, including family, friends and others, threaten you with harm: never How often does anyone, including family, friends and others, scream or curse at you: never service: No Meds Home Medications and Allergies Home Medications Medication Instructions Recorded Confirmed Type amlodipine 5 mg tablet 5 mg PO DAILY 12/23/22 03/20/24 History crctrgvp-xpr-dkraa acid 0.4 1 tab PO DAILY 12/23/22 03/20/24 History mg-lycopene 300 mcg-lutein 250 mcg tablet (Centrum Silver) carbidopa 25 mg-levodopa 100 mg 1 tab PO TID 03/20/24 03/20/24 History tablet Allergies Allergy/AdvReac Type Severity Reaction Status Date / Time No Known Drug Allergies Allergy Unverified 12/23/22 11:44 Exam Narrative: Exam Narrative: General appearance: Alert, cooperative, and in no distress Eyes: PERRLA, eye lids clear, and sclera white HENT Head: Normocephalic Ears: External ears normal Pulmonary: Clear to auscultation bilaterally Cardiovascular Heart: Regular rate and rhythm Extremities: warm and well perfused Gastrointestinal Abdominal: Minimally tender to palpation. This is less than on his exam yesterday. He has a large midline scar. Abdomen is nondistended. : Reducible right inguinal hernia noted. This is nontender. Musculoskeletal: Extremities: Upper: Both upper extremities have normal joint range of motion and intact strength. Lower: Both lower extremities have normal joint range of motion and intact strength. Skin: Normal skin color, texture, and turgor. Neurologic: No focal deficits Psychiatric: Alert, oriented, cooperative, normal affect. Const: Vital Signs, click to edit/add: Vital Signs - 24 hr 03/20/24 11:05 Temperature 97.6 F Pulse Rate [Right Radial] 64 Respiratory Rate 20 Blood Pressure [Le ft Arm] 125/73 Pulse Oximetry 98 Oxygen Delivery Me thod Room Air Results Results Labs: White blood cell count done yesterday at [facility] was 9.8. Hemoglobin 15.7. Creatinine was 1.7. Today, admission labs are: White blood cell count is 10 with a left shift. Electrolytes are normal. Lactate is 2. BUN is 33 creatinine is 1.2. Abdomen CT scan report/results: report reviewed and image reviewed Additional studies: CT scan done this morning at [facility]: Indication: Abdominal pain. Technique: CT of the abdomen and pelvis was performed following the administration of 100 mL Omnipaque 350. 24 ounces of water was given by mouth. Comparison: None available. Findings: Visualized lung bases: Clear. Liver: Mild hepatic steatosis. Too small to characterize hypodensities within both hepatic lobes. There are similar appearing lobulated hypodense lesions within hepatic segment 2 measuring 4.0 x 4.2 cm as well as within hepatic segment 8 inferiorly measuring up to 9 mm. Peripheral nodular discontinuous enhancement is seen within these lesions compatible with hemangiomas. Indeterminate hypodense lesion between the middle and right hepatic veins in segment 8 measuring 1.3 cm. There is suggestion of punctate peripheral nodular discontinuous enhancement involving this lesion as well. Hyperdense gallstones within the gallbladder neck and body. No pericholecystic inflammatory changes. No biliary ductal dilation. Pancreas: Unremarkable. Spleen: Unremarkable. Adrenals: Unremarkable. Kidneys: Symmetric renal enhancement. Left interpolar renal cyst. No nephrolithiasis or hydronephrosis. Aorta/IVC: Mild atherosclerotic aortic calcifications with tortuous abdominal aorta. No aortic aneurysm. Lymph nodes: No lymphadenopathy. Bowel: Moderate colonic fecal burden. Normal appendix. There is a small loop of ileum in the mid abdomen with tapering proximal and distal ends in close proximity to 1 another (series 2, image 72 and series 4 images 34-44). Upstream small bowel is dilated measuring up to 3.5 cm. No appreciable mesenteric edema. Trace pelvic free fluid. No intraperitoneal free air. No definite evidence of bowel wall hypoenhancement. Pelvis: Enlarged prostate measuring 6 cm in transverse dimension. Bones/body wall: Mild multilevel degenerative disc disease. Impression: 1. Dilated loops ileum in the mid and lower abdomen upstream to a focal loop of bowel with tapered proximal and distal portions in close proximity to one another. Findings are concerning for small bowel obstruction with possible closed loop morphology. Recommend Emergency Department evaluation with surgical consultation for further management. 2. Hepatic hemangiomas with indeterminate 1.3 cm lesion in hepatic segment 8, which may represent an additional hemangioma. Recommend correlation with prior imaging to determine stability, if available. Otherwise, nonemergent liver protocol CT or MRI is recommended. 3. Additional chronic/incidental findings as described. Please note that all CT scans at this facility use dose modulation, iterative reconstruction, and/or weight-based dosing when appropriate to reduce radiation dose to as low as reasonably achievable. Dictated by Eulalia Perez MD @ 03/20/2024 9:52:35 AM Progress Note:A&P Assessment and plan (1) Bowel obstruction: Status: Acute (2) KAREN (acute kidney injury): Status: Acute Plan The patient is a 73-year-old male who presented to clinic for a right inguinal hernia and incidentally appears to have a bowel obstruction. There is some concern for closed loop physiology. He has been having bowel movements, but has intermittent bouts of pain. We discussed the management of bowel obstructions. If he does have a closed-loop obstruction then he will likely need surgery. Unfortunately he does have a mildly elevated lactate. However he also appears to be dehydrated. Will give him fluids and have him drink Gastrografin today. I will recheck his lactate in a few hours. If this remains elevated or is worse then he will need to go to the OR for exploration urgently. If his pain remains minimal to none then we will watch him overnight. I explained the rationale behind surgery, often times adhesive small bowel obstructions will resolve, however there is risk of bowel ischemia if he has a closed loop obstruction. This obstruction is not related to his recurrent inguinal hernia.
[2024-03-20 12:20] LABS: Slide Review Reflex No
--- NOTE | 2024-03-20 12:31 | P.IMCN_ITS ---
Date of Consult Consult date: 03/20/24 Requesting Physician: General Surgery Primary Care Provider: Shin Stack MD Consult Narrative Reason for consult: KAREN, medical management of comorbidities Narrative: Pete Garcia is a 73 year old male who presented to the hospital today for a small bowel obstruction after seeing Dr. Quiñonez in [facility] Surgery [facility]. He was seen yesterday for abdominal pain, CT revealed concern for SBO with incidentally noted hepatic hemangiomas. Of note, Istat Creatinine was 1.7 (baseline Cr 1.2-1.3). Dr. Quiñonez called patient with results today and requested direct admission given findings. Upon arrival, patient has no specific concerns for hospitalist team. Mild abdominal pain, last flatus around 0500 this morning. Past medical history significant for: Parkinsons, essential HTN, incarcerated inguinal hernia (2008), R saphenous vein thrombus (2021, completed 45 days of anticoagulation). He takes Carbidopa-Levodopa thrice daily and Amlodipine once/day. PCP is Dr. Stack at [facility], Dr. Knowles is Neurologist. Lives with in [place], retired, nonsmoker, 5 ETOH drinks/week. Review of Systems Status of ROS: Reports: 10 or more systems reviewed and unremarkable except as noted in History and below [facility] Medical History (Updated 03/20/24 @ 13:45 by Yessica Corrales MD) Parkinson's disease ?G20.A1 - Parkinson's disease without dyskinesia, without mention of fluctuations (ICD-10) Superficial vein thrombosis ?I82.890 - Acute embolism and thrombosis of other specified veins (ICD-10) Ischemic optic neuropathy ?H47.019 - Ischemic optic neuropathy, unspecified eye (ICD-10) BRVO (branch retinal vein occlusion) ?H34.8392 - Tributary (branch) retinal vein occlusion, unspecified eye, stable (ICD-10) HTN (hypertension) ?I10 - Essential (primary) hypertension (ICD-10) Surgical History (Updated 03/20/24 @ 13:33 by Haritha Quiñonez MD) S/P laparotomy ?Z98.890 - Other specified postprocedural states (ICD-10) Social History What is your current living situation?: I presently have a place to live Problems where you live: no known problems Problems where you live details: none In the past 12 months, utilities in danger of being shut off: no In past 12 months, lack of transportation kept you from medical appts, meetings, work, or getting things needed for daily living: no In the past 12 mos, have been you worried that your food would run out before you had money to buy more?: never true In the past 12 mos, the food you bought just didn't last and you didn't have money to buy more?: never true Highest level of school completed/degree received: Master's degree Smoking Status: Never smoker Do you use any of these nicotine containing products: None How often do you have a drink containing alcohol: 2-4 times a month Alcohol type: beer How many standard drinks containing alcohol do you have on a typical day: 5 or 6 AUDIT-C Alcohol total score: 4 Non-prescribed substance use: denies use Caffeine: No How often does anyone, including family, friends and others, physically hurt you : never How often does anyone, including family, friends and others, insult or talk down to you: never How often does anyone, including family, friends and others, threaten you with harm: never How often does anyone, including family, friends and others, scream or curse at you: never service: No Meds Home Medications and Allergies Home Medications Medication Instructions Recorded Confirmed Type amlodipine 5 mg tablet 5 mg PO DAILY 12/23/22 03/20/24 History zfxksqrw-kcm-aptat acid 0.4 1 tab PO DAILY 12/23/22 03/20/24 History mg-lycopene 300 mcg-lutein 250 mcg tablet (Centrum Silver) carbidopa 25 mg-levodopa 100 mg 1 tab PO TID 03/20/24 03/20/24 History tablet Allergies Allergy/AdvReac Type Severity Reaction Status Date / Time No Known Drug Allergies Allergy Unverified 12/23/22 11:44 Exam Narrative: Exam Narrative: GEN: Alert and oriented, sitting comfortably in bed and nontoxic HEENT: Normal external ears, EOMIs bilaterally, no scleral icterus CV: RRR, No concerning murmurs R: LCTA bilaterally without concerning wheezing, air movement adequate Ab: Soft, mildly distended, hypoactive bowel sounds throughout Ext: wwp, no concerning edema Skin: No concerning skin lesions or rashes on exposed skin Neuro: No focal deficit or resting tremor Psych: Appropriate Const: Vital Signs, click to edit/add: Vital Signs - 24 hr 03/20/24 11:05 Temperature 97.6 F Pulse Rate [Right Radial] 64 Respiratory Rate 20 Blood Pressure [Le ft Arm] 125/73 Pulse Oximetry 98 Oxygen Delivery Me thod Room Air Labs Labs: Short CBC 03/20/24 Range/Units 12:05 WBC 10.05 (4.50-11.00) K/uL Hgb 14.7 (13.5-17.5) gm/dL Hct 43.4 (37.0-53.0) % Plt Count 199 (140-440) K/uL Assessment and Plan Assessment and plan (1) Bowel obstruction: Status: Acute (2) Superficial vein thrombosis: Problem comment: - 2021, treated with 45 days of anticoagulation - recommend Domenic thomas and Blanca for ppx Status: Acute (3) KAREN (acute kidney injury): Problem comment: - baseline creatinine 1.2-1.3, was 1.7 in clinic on 03/19/24 (likely prerenal given SBO/decreased po intake) - back to 1.2 on ., continue to follow Status: Acute (4) Parkinson's disease: Problem comment: - mild/early disease, follows with Dr. Knowles of Neurology - hold Carbidopa/levodopa while NPO Status: Acute Plan - per above - General surgery primarily managing SBO - updated at bedside, questions answered - hospitalist team will continue to follow
[2024-03-20 12:43] LABS: Chloride* 104 mmol/L (96-114); Potassium* 3.9 mmol/L (3.6-5.1); Sodium* 137 mmol/L (135-149)
[2024-03-20 12:46] LABS: Anion Gap 8 mEq/L (7-15); Blood Urea Nitrogen* 33 mg/dL (7-30); Carbon Dioxide* 25 mmol/L (20-32); Creatinine* 1.2 mg/dL (0.5-1.5); Est. Creatinine Clearance* 49.58; Estimated Glomerular Filt Rate 63 ml/min
[2024-03-20 12:47] LABS: Glucose* 103 mg/dL (60-115)
--- NOTE | 2024-03-20 14:01 | PC.NURSE ---
End of Shift Note: Patient was a direct admit from Dr Quiñonez's clinic. He had developed abdominal pain and was seen at the clinic and CT scan is showing bowel obstruction. He is NPO and currently has IV fluids running. He has not complained of any pain since his arrival. Did take in the gastrografin contrast and will have imagining tomorrow morning. He is alert and orientated and able to make his needs known. Will continue to monitor until next shift arrives.
[2024-03-20 15:00] VITALS: PULSE 70; RESP 16
[2024-03-20 16:37] VITALS: BP 143/81; PULSE 70; RESP 16; TEMP 36.6; O2SAT 96
[2024-03-20 20:00] VITALS: BP 144/60; PULSE 58; RESP 16; TEMP 36.7; O2SAT 95
[2024-03-20] MEDS: CARBIDOPA-LEVODOPA 25-100 TABLET 1 TAB PO (21:06)
--- NOTE | 2024-03-20 22:33 | PC.NURSE ---
Patient alert and oriented x4. VSS. Patient is NPO. Patient had two loose stools during shift. Patient stated they had pain described as cramping during and after passing stools. Patient rated pain at a 2/10. Independent with walking and use of toilet. Patient walked the halls this afternoon with . Patient's at bedside most of shift.
[2024-03-20 23:00] VITALS: BP 134/79; PULSE 67; RESP 16; TEMP 36.6; O2SAT 96
[2024-03-21 03:00] VITALS: BP 120/77; PULSE 64; RESP 16; TEMP 36.7; O2SAT 95
[2024-03-21] MEDS: LACTATED RINGERS 1000 ML 1,000 ML 125 ML IV ×2 (03:47→11:59)
--- NOTE | 2024-03-21 05:43 | PC.NURSE ---
[id number] Pt had 5 bowel movements during shift, loose with occasion formed BM, small to large in size, pain 2/10 during the night. NPO since midnight, denies N/V. IND in room, tolerating activity.
[2024-03-21] MEDS: CARBIDOPA-LEVODOPA 25-100 TABLET 1 TAB PO ×3 (06:46→21:21)
[2024-03-21 07:00] VITALS: BP 118/72; PULSE 60; RESP 20; TEMP 36.5; O2SAT 96
--- NOTE | 2024-03-21 07:00 | XR_ITS ---
Patient: CHIP MORGAN Facility:?[facility] Patient ID:?[id number] Site Patient ID:?[id number]. Site :?[id number] Study:?XRay-Abdomen 1 VIEW-03/21/2024 7:36:57 AM Ordering Physician:CLIFF Final Report: Indication: BOWEL OBSTRUCTION. Technique: 2 AP view(s) of the abdomen. Comparison: CT 03/20/2024. Findings/Impression: Enteric contrast material is seen within the distal stomach as well as the small and large bowel. Contrast is seen within the rectum. Nonspecific bowel gas pattern with decreased number of dilated bowel loops compared to prior CT. No large volume pneumoperitoneum on supine views. Visualized lung bases are clear. No acute osseous abnormality. Dictated by Eulalia Perez MD @ 03/22/2024 7:36:56 AM Signed by:?Eulalia Perez MD @03/22/2024 7:36:56 AM (Electronic Signature)
[2024-03-21 08:42] LABS: Lactate* 0.8 mmol/L (0.5-1.9)
[2024-03-21 08:43] LABS: Basophils Absolute Auto 0.03 K/uL (0.00-0.30); Basophils Percent Auto 0.5 % (0.0-3.0); Eosinophils Absolute Auto 0.16 K/uL (0.00-0.50); Eosinophils Percent Auto 2.6 % (0.0-7.0); Hematocrit 43.5 % (37.0-53.0); Hemoglobin* 14.3 gm/dL (13.5-17.5); Lymphocytes Percent Auto 14.9 % (20-44); Mean Corpuscular HGB Conc 33 gm/dL (32-36); Mean Corpuscular Hemoglobin 30 pg (26-34); Mean Corpuscular Volume 93 fL (80-100); Monocytes Percent Auto 8.7 % (0.0-11.0); Neutrophils Percent Auto 73.3 % (42.0-72.0); Platelet Count* 192 K/uL (140-440); RDW Coefficient of Variation % 12.2 % (11.5-15.5); White Blood Count* 6.06 K/uL (4.50-11.00)
[2024-03-21 08:44] LABS: Slide Review Reflex No
--- NOTE | 2024-03-21 08:46 | PM.GSPN ---
Subjective Subjective Date Seen: 03/21/24 Interval history: Patient is pain free except for crampy pain immediately surrounding having a bowel movement. Having copious stool after Gastrografin challenge. Exam Narrative: Exam Narrative: General: No acute distress CV: Regular rate Respiratory: Breathing nonlabored on room air Abdomen: Soft, nontender. Nondistended. Const: Vital Signs, click to edit/add: Vital Signs - 24 hr 03/20/24 11:05 03/20/24 15:00 03/20/24 16:37 Temperature 97.6 F 97.9 F Pulse Rate [Right Radial] 64 70 70 Respiratory Rate 20 16 16 Blood Pressure [Le ft Arm] 125/73 143/81 H Pulse Oximetry 98 96 Oxygen Delivery Me thod Room Air Room Air 03/20/24 20:00 03/20/24 23:00 03/21/24 03:00 Temperature 98.0 F 97.8 F 98.0 F Pulse Rate [Right Radial] 58 L 67 64 Respiratory Rate 16 16 16 Blood Pressure [Le ft Arm] 144/60 H 134/79 120/77 Pulse Oximetry 95 96 95 Oxygen Delivery Me thod Room Air Room Air Labs/Imaging Labs Labs: White blood cell count is normal at 6, still with a slight left shift, but improved from yesterday. Lactate remains normal at 0.08. Electrolytes and creatinine are normal Imaging Imaging: Abdominal x-ray reviewed today. The patient has contrast in the colon, however it appears as though he may also of contrast in the stomach. There is also still dilated and edematous small bowel in the left abdomen. Awaiting final radiology read. Progress Note:A&P Assessment and plan (1) Parkinson's disease: Status: Acute (2) Bowel obstruction: Status: Acute (3) Superficial vein thrombosis: Status: Acute Plan Patient is a 73-year-old male with an adhesive small-bowel obstruction. He has been having copious bowel movements after the Gastrografin challenge. He is having minimal pain. -x-ray still shows dilated loops of bowel on the left, however contrast is in the colon. Curiously there does look like there is still some contrast in the stomach. -a.m. labs -will advance diet to clears, however, I have told the patient and his that if he has a partial small bowel obstruction he still may need surgery given the appearance on CT scan and x-ray. Will continue to follow clinically today, Repeat labs and x-ray tomorrow.
[2024-03-21 08:56] LABS: Chloride* 105 mmol/L (96-114); Potassium* 4.1 mmol/L (3.6-5.1); Sodium* 138 mmol/L (135-149)
[2024-03-21 08:59] LABS: Anion Gap 5 mEq/L (7-15); Blood Urea Nitrogen* 26 mg/dL (7-30); Carbon Dioxide* 28 mmol/L (20-32); Est. Creatinine Clearance* 59.79; Estimated Glomerular Filt Rate 78 ml/min; Glucose* 90 mg/dL (60-115)
[2024-03-21 09:00] LABS: Calcium* 8.5 mg/dL (8.4-10.6)
[2024-03-21 11:40] VITALS: BP 115/71; PULSE 57; RESP 16; TEMP 36.5; O2SAT 98
--- NOTE | 2024-03-21 15:13 | PC.NURSE ---
End of Shift Note. Patient has been up ad el today and has been ambulating in the hallway with his . Is currently tolerating a clear liquid diet did adv to a low fiber or soft diet. No complaints of pain. Will continue to monitor until next shift arrives.
[2024-03-21 16:18] VITALS: BP 118/75; PULSE 57; PULSE 59; RESP 12; RESP 16; TEMP 36.6; O2SAT 95
[2024-03-21 19:00] VITALS: BP 133/85; PULSE 61; RESP 16; TEMP 36.4; O2SAT 95
--- NOTE | 2024-03-21 22:36 | PC.NURSE ---
Nursing Care Hours: [id number] pt this shift calm and cooperative, alert and oriented. No c/o pain or nausea. Independent in room, seen walking halls frequently. Pt reports frequent loose stools. Tolerating regular soft/low fiber diet. IV saline locked, VSS.
[2024-03-21 23:59] VITALS: BP 150/91; PULSE 75; RESP 14; TEMP 36.6; O2SAT 97
[2024-03-22 03:01] VITALS: BP 143/81; PULSE 70; RESP 14; TEMP 36.8; O2SAT 95
--- NOTE | 2024-03-22 06:21 | PC.NURSE ---
Pt alert and oriented x3. Afebrile. VSS. Pt denies pain but reports tenderness in abdomen with palpation but states It feels much better than before, offered pain medications pt refused stating its so small I don't need anything for it. Pt is tolerating a reg low fiber diet, pt is up independent in room, voiding, and slept throughout most of night. Night uneventful.
[2024-03-22 06:28] LABS: Basophils Absolute Auto 0.01 K/uL (0.00-0.30); Basophils Percent Auto 0.1 % (0.0-3.0); Eosinophils Absolute Auto 0.05 K/uL (0.00-0.50); Eosinophils Percent Auto 0.7 % (0.0-7.0); Hematocrit 44.4 % (37.0-53.0); Hemoglobin* 14.8 gm/dL (13.5-17.5); Immature Granulocytes Abs Auto 0.08 K/uL (0.00-0.30); Immature Granulocytes Pct Auto 1.1 %; Lymphocytes Percent Auto 7.1 % (20-44); Mean Corpuscular HGB Conc 33 gm/dL (32-36); Mean Corpuscular Hemoglobin 31 pg (26-34); Mean Corpuscular Volume 92 fL (80-100); Monocytes Percent Auto 8.4 % (0.0-11.0); Neutrophils Percent Auto 82.6 % (42.0-72.0); Platelet Count* 194 K/uL (140-440); Red Blood Count 4.82 m/uL (4.30-5.90); White Blood Count* 7.06 K/uL (4.50-11.00)
[2024-03-22 06:30] LABS: Slide Review Reflex No
--- NOTE | 2024-03-22 07:00 | XR_ITS ---
Patient: CHIP MORGAN Facility:?[facility] Patient ID:?[id number] Site Patient ID:?[id number]. Site :?[id number] Study:?XRay-Abdomen 1 view-03/22/2024 7:06:09 AM Ordering Physician:Kirk Quiñonez Final Report: Indication: Gastrografin challenge. Small-bowel obstruction Technique: KUB examination the abdomen was performed March 22, 2024 at 06:58. Comparison: KUB examination March 21, 2024 at 07:25 Findings: All the contrast that was previously within small bowel has passed into the colon. Most of the contrast is currently in the descending colon. Mildly prominent mid abdominal loops of small bowel, air-filled. Impression: All the contrast has passed from the small bowel into the colon and no contrast persists within the small bowel. The findings are not currently compatible with a small-bowel obstruction. Dictated by Chay Jaime MD @ 03/22/2024 7:24:07 AM Signed by:?Chay Jaime MD @03/22/2024 7:24:07 AM (Electronic Signature)
[2024-03-22 07:16] VITALS: BP 124/73; PULSE 71; RESP 18; TEMP 36.6; O2SAT 94
[2024-03-22] MEDS: CARBIDOPA-LEVODOPA 25-100 TABLET 1 TAB PO (08:00)
--- NOTE | 2024-03-22 10:21 | PM.DS1 ---
DS: Providers Provider Date Seen: 03/22/24 Date of admission: 03/20/24 12:33 Primary care physician: Shin Stack MD Admitting Clinician: Haritha Quiñonez MD Consults: 03/20/24 11:41 Consult to Physician [CONS] Routine Comment: Consulting Provider: Yessica Corrales Has provider been notified: Yes Attending Physician on discharge: Haritha Quiñonez MD Date of Discharge: 03/22/24 DS: Diagnosis Discharge Diagnosis (1) Parkinson's disease: Status: Acute Problem details: - mild/early disease, follows with Dr. Knowles of Neurology - hold Carbidopa/levodopa while NPO (2) Bowel obstruction: Status: Acute Problem details: resolved DS: Summary Hospital Course Hospital Course: The patient is a 73-year-old male with a history of ex lap and small bowel resection 16 years ago for strangulated right inguinal hernia. He developed a recurrent right inguinal hernia and presented to clinic to consult. Coincidentally, he had developed that day, severe abdominal pain. CT scan was obtained, showing a small bowel obstruction with concern for a closed loop. He was admitted to the hospital and given fluids and a gastrograffin challenge (his pain had subsided after having a large bowel movement). He continued to have no pain over the next 2 days and tolerated a diet with continued antegrade bowel function. He was deemed safe for discharge home on hospital day 3. Status at Discharge Overall status at discharge: patient is back to baseline Time Spent with Patient Time attestation: Total time spent providing and/or coordinating discharge services: Exam Narrative: Exam Narrative: General: NAD Respiratory: breathing nonlabored CV: regular rate Abdomen: Soft, non-tender, non-distended. Const: Vital Signs, click to edit/add: Vital Signs - 24 hr 03/21/24 11:40 03/21/24 16:18 03/21/24 16:18 Temperature 97.7 F 97.8 F Pulse Rate [Left P ulse Oximeter] 59 L Pulse Rate [Right Radial] 57 L 57 L Respiratory Rate 16 16 12 Blood Pressure [Le ft Arm] 115/71 118/75 Pulse Oximetry 98 95 Oxygen Delivery Me thod Room Air Room Air 03/21/24 19:00 03/21/24 23:59 03/22/24 03:01 Temperature 97.5 F L 97.9 F 98.2 F Pulse Rate [Left P ulse Oximeter] 61 75 70 Pulse Rate [Right Radial] Respiratory Rate 16 14 14 Blood Pressure [Le ft Arm] 133/85 150/91 H 143/81 H Pulse Oximetry 95 97 95 Oxygen Delivery Me thod Room Air Room Air Room Air 03/22/24 07:16 Temperature 97.8 F Pulse Rate [Left P ulse Oximeter] 71 Pulse Rate [Right Radial] Respiratory Rate 18 Blood Pressure [Le ft Arm] 124/73 Pulse Oximetry 94 Oxygen Delivery Me thod Room Air DS: Data Data Completed and Pending Labs on day of discharge: Labs from last 24 hours 03/22/24 06:01 WBC 7.06 RBC 4.82 Hgb 14.8 Hct 44.4 MCV 92 MCH 31 MCHC 33 RDW Coeff of Nickie 12.0 Plt Count 194 Neut % (Auto) 82.6 H Lymph % (Auto) 7.1 L Blair % (Auto) 8.4 Eos % (Auto) 0.7 Baso % (Auto) 0.1 Neut # (Auto) 5.80 Lymph # (Auto) 0.50 L Blair # (Auto) 0.60 Eos # (Auto) 0.05 Baso # (Auto) 0.01 Abs Immat Gran (auto) 0.08 Imm/Tot Granulo (auto) 1.1 Discharge Plan Discharge Disposition: Home, Self-Care Date of Admission: 03/20/24 12:33 Consulting Providers: Yessica Corrales Primary Care Provider: Shin Stack Condition: Improved Anticipated Discharge Date/Time: 03/22/24 10:21 Discharge Medications: Continued amlodipine 5 mg tablet 5 mg PO DAILY Centrum Silver 0.4 mg-300 mcg- 250 mcg tablet 1 tab PO DAILY carbidopa-levodopa 25-100 mg tablet 1 tab PO TID Discharge Orders: Discharge Order (Routine); Ordered 03/22/24 Ordered By: Haritha Quiñonez Consulting provider completed their portion of the discharge: Yes Patient Education: Bowel Obstruction (GEN) Additional Instructions: Call or return to clinic if your pain returns or if you develop nausea or vomiting. You may not have a bowel movement for a day or so, however as long as you are continuing to pass gas from below, this is acceptable. If you have not had a bowel movement in several days, you should call [facility]. Follow-up with Dr. Quiñonez in 2 weeks. Activity Level: Activity as Tolerated Discharge Diet: Regular Follow Up Appointments: Shin Stack MD [Primary Care Provider] - Haritha Quiñonez MD [Staff Physician] - 04/02/24 2:30 pm ([facility] for follow-up.) Forms: [facility] Info Instructions
--- NOTE | 2024-03-22 11:01 | PC.NURSE ---
Discharge: Patient pleasant and cooperative. Up independently. Vitals stable and WNL. Denies pain, toelrating diet well. Seen by this AM. Discharge instructions and follow up reviewed. Patient ambulated to car, discharged @1050 with spouse.
== END 2024-03-22 10:50 | disposition home or self-care (01) | DRG 389 ==
PROVIDERS: Admitting Provider Surgery; PCP Family Medicine; Visit Provider Surgery
DX: K56.609 Unspecified intestinal obstruction, unspecified as to partial versus complete obstruction (principal); N17.9 Acute kidney failure, unspecified; G20.A1 Parkinson's disease without dyskinesia, without mention of fluctuations; I10 Essential (primary) hypertension; K40.91 Unilateral inguinal hernia, without obstruction or gangrene, recurrent; Z86.718 Personal history of other venous thrombosis and embolism
CPT/HCPCS: 36415; 74018; 80048; 83605; 85025; A9270; J7120

== ENCOUNTER 2024-05-30 07:56 | Day surgery (SDC) | payer MEDICARE, SELFPAY ==
[2024-05-30] VITALS (11 sets, daily range): BP systolic 117–142; BP diastolic 66–93; PULSE 48–62; RESP 14–20; TEMP 36.3–36.9; O2SAT 97–100; BMI 23.4
--- OUTSIDE RECORDS SUMMARY | 2024-05-30 07:59 | XMS_ITS | Clinical Summary ---
Author Organization Formerly [facility], [facility]–1983 Address [address] [place] [address] Care Team Providers Care Prepress Supervisor Name Role Phone Shin Carrington Primary Care [...] for each transition of care or referral. [facility] Social History Tobacco Use Types Packs/Day Years [...] 2024 09/05/2023, 04/17/2023, 07/29/2022, Additional history exists Influenza (#1) 2024 09/05/2023, 07/14, 09/03/2021, Additional history exists DTaP/Tdap/Td (3 - Tdap) 12/21/2032 12/21/19 23, 08/14/2012, 07/07/2008, Additional history exists HepA Aged Out 05/21/1999, 11/10/1997 No lo nger eligible based on patient's age to complete this topic Zoster/Shingles Completed 09/25/2020, 02/2020, 08/14/2012 Pneumococcal 65+ Yrs Completed 12/19/2022, 08/29/2016, 12/17/2015 HepB Aged Out No longer eligi ble based on patient's age to complete this topic Hib Aged Out No longer eligi ble based on patient's age to complete this topic IPV (Polio) Aged Out No longer eligi ble based on patient's age to complete this topic MCV4 Aged Out No longer eligi ble based on patient's age to complete this topic Care Teams Prepress Supervisor Relationship Specialty Start Date End Date Shin Carrington PCP - General 02/14/11
--- OUTSIDE RECORDS SUMMARY | 2024-05-30 07:59 | XMS_ITS | Clinical Summary ---
Author Organization [employer] [facility] Address [place], [place] [address] Care Team Providers Care Rigging Loft Mechanic Name Role Phone Shin Stack MD Primary Care Provider Allergies No known active allergies Medications Medication Sig Dispensed Refills Start Date End Date Status multivitamins-minera ls-lutein (CENTRUM SILVER) Tab tablet Take 1 tablet by mouth once daily. 0 08/14/2012 Active carbidopa-levodopa, 25-100 mg, (SINEMET 25-100) 25-100 mg tabletIndications:Pa rkinson's disease without dyskinesia, unspecified whether manifestations fluctuate (HC) TAKE ONE TABLET BY MOUTH 4 TIMES DAILY 120 Tablet 3 04/01/2024 Active amLODIPine (NORVASC) 5 mg tabletIndications:Es sential hypertension Take 1 Tablet (5 mg) by mouth once daily. 90 Tablet 3 05/24/2024 Active amLODIPine (NORVASC) 5 mg tabletIndications:Es sential hypertension Take 1 Tablet (5 mg) by mouth once daily. 90 Tablet 3 05/23/2023 05/24/2024 Discontinue d(Reorder (E-cancel not sent)) Active Problems Problem Noted Date Diagnosed Date Tributary (branch) retinal v ein occlusion, right eye, stable 05/24/2024 Parkinson's disease 11/13/2022 Superficial thrombophlebitis : 05/17/2022 [...] Encounters Date Type Department Care Team Description 05/24/2024 2:55 PM CDT Office Visit [facility] [address] [place] [address] Shin Stack MD Medicare ANNUAL (subsequent) Visit (73 year old); Preoperative Exam (DOS: 05/30/2024, hernia repair, Dr. Quiñonez, [facility]); Derm Problem (Check spot on right forearm) 05/24/2024 Travel 05/17/2024 8:00 AM CDT Orders Only [facility] [address] [place] [address] Lab, [place] [facility] 05/17/2024 Travel 05/10/2024 Telephone [facility] [address] [place] [address] Shin Stack MD Lab 04/16/2024 1:00 PM CDT Office Visit [facility] [address] [place] [address] Haritha Quiñonez MD Follow Up (2 week Bowel obstruction) 04/16/2024 Travel 04/02/2024 1:30 PM CDT Office Visit [facility] [address] [place] [address] Haritha Quiñonez MD Hospital F/U (Bowel obstruction) 04/02/2024 Travel 03/30/2024 Refill [facility] [place] [facility] [address] [place] [address] Jesús Knowles MD Refill Request (Carbidopa-levodopa (25-100 Mg)) 03/22/2024 Orders Only [facility] Scanner 1 scan: (1-Ord) [place], XR ABD 1V, 03/22/2024 03/21/2024 Orders Only [facility] Scanner 1 scan: (1-Ord) [facility], XR ABDOMEN 1V, 03/21/2024 03/20/2024 8:30 AM CDT Ancillary Procedure [facility] [address] [place] [address] 03/20/2024 8:15 AM CDT Orders Only [facility] [address] [place] [address] Lab, [place] [facility] 03/19/2024 4:00 PM CDT Office Visit [facility] [address] [place] [address] Haritha Quiñonez MD Consult (Right inguinal hernia referred by Sreekanth Vasquez) 03/19/2024 Travel 03/13/2024 3:45 PM CDT Office Visit [facility] [address] [place] [address] Shin Stack MD Lump (In groin area, left side, noticed about 5 weeks ago, getting bigger, no pain) 03/13/2024 Travel 03/08/2024 Travel from Last 3 Months Immunizations Name Administration Dates Next Due Amb Influenza, Inact (High-d ose) (Flu Clinic Only) 08/22/2016,09/12/2014 COVID-19 Vaccine Spikevax (M oderna 50mcg/0.5mL) 12YO+ [id number] Formula PF 03/13/2024,09/05/2023 COVID-19 vaccine (Moderna 10 [...] Stomach in his 60's Heart Disease Father [place] in his 60's Other Mother liver ca [...] Answer Date Recorded PHQ-2 TOTAL SCORE 0 05/24/2024 Social Connections Answer Date Recorded Frequency of Communication with Friends and Fami ly 0 05/24/2024 Financial Resource Strain Answer Date R ecorded Difficulty of Paying Living Expenses 3 05/24/2024 Difficulty of Paying Living Expenses Not on file 05/24/2024 Food Insecurity Answer Date Recorded Worried About Running Out of Food in the Last Ye ar 1 05/24/2024 Transportation Needs Answer Date Record ed Lack of Transportation (Medical) 1 05/24/2024 Housing Stability Answer Date Recorded Unable to Pay for Housing in the Last Year 1 05/24/2024 Sex and Gender Information Value Date Recorded Sex Assigned at Male 01/12/2022 9:48 AM EXCHANGE TROUBLE SHOOTER Gender Identity Male 01/12/2022 9:48 AM EXCHANGE TROUBLE SHOOTER Sexual Orientation Choose not to disclose 2021 9:48 AM EXCHANGE TROUBLE SHOOTER Obstetrics History Last Filed Vital Signs Vital Sign Reading Time Taken Comments Blood Pressure 134/74 05/24/2024 2:56 PM CDT Pulse 64 05/24/2024 2:56 PM CDT Temperature 36.8 ??C (98.2 ??F) 09/30/2020 1:31 PM CS T Respiratory Rate 18 11/03/2014 7:54 AM EXCHANGE TROUBLE SHOOTER Oxygen Saturation 98% 05/24/2024 2:56 PM CDT Inhaled Oxygen Concentration - - Weight 70 kg (154 lb 6.4 oz) 05/24/2024 2:56 PM CDT Height 173.5 cm (5' 8.31) 05/24/2024 2:56 PM CD T Body Mass Index 23.27 05/24/2024 2:56 PM CDT Plan of Treatment Upcoming Encounters Date Type Department Care Team (Late st Contact Info) Description 05/30/2024 8:00 AM CDT Office Visit [facility] at [facility] [address] [place] [address] Haritha Quiñonez MD [address] [place] [address] 10/01/2024 9:00 AM EXCHANGE TROUBLE SHOOTER Office Visit [facility] [place] [facility] [address] [place] [address] Jesús Knowles MD [address] [place] [address] Health Maintenance Due Date Last Done Comments Influenza for age 65+ 07/14/2024 09/05/2023 , 07/29/2022, 09/03/2021, Additional history exists BMI (ht and wt on same day) for age 18+ 05/24/2025 05/24/2024, 05/23/2023, 12/19/2022, Additional history exists Depression screening for age 12+ 05/24/2025 05/24/2024, 05/23/2023, 03/02/2022, Additional history exists Medicare Wellness for age 65+ 05/25/2025, 05/23/2023, 03/02/2022, Additional history exists Lipids for age 45-75 05/17/2029 05/17/2024, 05/23/2023, 02/25/2021, Additional history exists Colonoscopy through age 75 [...] Procedure Name Priority Date/Time Associated Diagnosis Comments PSA TOTAL (DIAGNOSTIC) Routine 05/17/2024 8:04 AM CDT Elevated PSA BASIC METABOLIC PANEL Routine 05/17/2024 8:04 AM CDT Essential hypertension LIPID PANEL W REFLEX MEASURED LDL Routine 05/17/2024 8:04 AM CDT Lipid screening SCAN-RADIOLOGY REPORT 03/22/2024 12:00 AM CDT SCAN-RADIOLOGY REPORT 03/21/2024 12:[address] ABDOMEN PELVIS W IESHA 03/20/2024 9 :24 AM CDT Abdominal pain, unspecified abdominal location CREATININE,ISTAT Routine 03/20/2024 8:50 AM CDT Observation or evaluation for suspected condition CBC WITH AUTO DIFFERENTIAL Routine 03/19/2024 5:06 PM CDT Abdominal pain, unspecified abdominal location BASIC METABOLIC PANEL Routine 03/19/2024 5:06 PM CDT Abdominal pain, unspecified abdominal location CBC WITH AUTO DIFFERENTIAL Routine 03/19/2024 5:06 PM CDT Abdominal pain, unspecified abdominal location COLONOSCOPY 09/18/2019 8:31 AM EXCHANGE TROUBLE SHOOTER ANTI HCV Routine 08/10/2017 7:49 AM CDT Encounter for hepatitis C screening test for low risk patient from Last 3 Months or Most Recently Relevant to Health Maintenance Results * LIPID PANEL W REFLEX MEASURED LDL (05/17/2024 8:04 AM CDT) CHOLESTEROL,TOTAL 174 100 - 199 mg/dL 05/17/2024 4:17 PM CDT [facility] Comment: Cholesterol, Total Reference Ranges Desirable <200 mg/dL Borderline 200-239 mg/dL High >=240 mg/dL TRIGLYCERIDES 75 <150 mg/dL 05/17/2024 4:17 PM CDT [facility] HDL CHOLESTEROL 58 >40 mg/dL 4:17 PM CDT [facility] NON-HDL CHOLESTEROL 116 <145 mg/dl 05/17/2024 4:17 PM CDT [facility] CHOL/HDL RATIO 3.00 <4.50 05/17/2024 4:17 PM CDT [facility] LDL CHOLESTEROL 101 <=130 mg/dL 05/17/2024 4:17 PM CDT [facility] VLDL CHOLESTEROL 15 <=30 mg/dL 05/17/2024 4:17 PM CDT [facility] PROVIDER ORDERED STATUS RANDOM 05/17/2024 4:17 PM CDT [facility] Blood BLOOD SPECIMEN / Unknown Venipuncture / Unknown 05/17/2024 8:04 AM CDT 05/17/2024 8:05 AM CDT Shin Stack MD CHEMISTRY Performing Organization Address [facility] Co de Phone Number [facility] [address] [place] [address], [place] * PSA TOTAL (DIAGNOSTIC) (05/17/2024 8:04 AM CDT) PSA TOTAL (DIAGNOSTIC) 3.66 <4.00 ng/mL 05/17/2024 4:17 PM CDT [facility] Blood BLOOD SPECIMEN / Unknown Venipuncture / Unknown 05/17/2024 8:04 AM CDT 05/17/2024 8:05 AM CDT Narrative [facility] - 05/17/2024 4:17 PM CDT The test method changed on 05/09/2023. If this test has been used for serial monitoring, rebaselining is recommended. Rebaselining consists of 2 measurements, collected 3-6 weeks apart. The Nickolas Elecsys total PSA assay is an electrochemiluminescence immunoassay ECLIA performed on the Nickolas Matthew e immunoassay analyzers. Values obtained with different assay methods may be different and cannot be used interchangeably. Shin Stack MD CHEMISTRY Performing Organization Address [facility] Co de Phone Number [facility] [address] [place] [address], [place] * (ABNORMAL) BASIC METABOLIC PANEL (05/17/2024 8:04 AM CDT) Only the most recent of2 resultswithin the time period is included. SODIUM 147(H) 136 - 145 mmol/L 05/17/2024 4:17 PM T [facility] POTASSIUM 4.0 3.5 - 5.1 mmol/L 05/17/2024 4:17 PM T [facility] CHLORIDE 111(H) 98 - 107 mmol/L 05/17/2024 4:17 PM T [facility] CO2,TOTAL 25 22 - 29 mmol/L 05/17/2024 4:17 PM T [facility] ANION GAP 11 5 - 18 05/17/2024 4:17 PM T [facility] GLUCOSE 96 70 - 99 mg/dL 05/17/2024 4:17 PM T [facility] CALCIUM 8.9 8.8 - 10.2 mg/dL 05/17/2024 4:17 PM T [facility] BUN 29(H) 8 - 23 mg/dL 05/17/2024 4:17 PM T [facility] CREATININE 1.12 0.70 - 1.20 mg/dL 05/17/2024 4:17 PM T [facility] BUN/CREAT RATIO 26(H) 10 - 20 4:17 PM T [facility] eGFR 69(L) >90 mL/min/1.7 3m2 05/17/2024 4:17 PM [facility] Comment:As of 2022, eG FR is calculated by the CKD-EPI creatinine equation without race adjustment. ??eGFR can be influenced by muscle mass, exercise, and diet. ??The reported eGFR is an estimation only and is only applicable if the renal function is stable. Blood BLOOD SPECIMEN / Unknown Venipuncture / Unknown 05/17/2024 8:04 AM CDT 05/17/2024 8:05 AM CDT Shin Stack MD CHEMISTRY [facility] [address] [place] [address], [place] * SCAN-RADIOLOGY REPORT (03/22/2024 12:00 AM CDT) Only the most recent of2 resultswithin the time period is included. Anatomical Region Laterality Modality Other Scanner OTHER * CT ABDOMEN PELVIS W (03/20/2024 9:24 [...] 9:52:35 AM (Electronically Signed) Procedure Note Eulalia Perez DO - 03/20/2024 For Patients: As a result of the 21st Century Cures Act, medical imagingexams and procedure reports [...] (series 2, image 72 and series 4 -21). Upstream small bowel is dilated measuring up [...] (ABNORMAL) CREATININE,ISTAT (03/20/2024 8:50 AM CDT) Pathologist [facility] CREATININE, POCT 1.70(H) 0.57 - 1.11 mg/dL 03/20/2024 8:52 AM CDT [facility] Comment:Caution: Patients ta collin Hydroxyurea have falsely increased iStat Creatinine results. Verify creatinine results ordering a Creatinine (63491.2) eGFR 42(L) >90 mL/min/1.7 3m2 03/20/2024 8:52 AM CDT [facility] Comment:As of 2022, eG FR is calculated by the CKD-EPI creatinine equation without race adjustment. eGFR can be influenced by muscle mass, exercise, and diet. The reported eGFR is an estimation only and is only applicable if the renal function is stable. Blood BLOOD SPECIMEN / Unknown 03/20/2024 8:50 AM CDT 03/20/2024 8:52 AM CDT Haritha Quiñonez MD CHEMISTRY [facility] [address] [place] [address], * (ABNORMAL) CBC WITH AUTO DIFFERENTIAL (03/19/2024 5:06 PM CDT) [facility] WHITE BLOOD COUNT 9.8 4.5 - 11.0 thou/cu mm 03/19/2024 5:15 PM CDT [facility] RED BLOOD COUNT 4.99 4.30 - 5.90 mil/cu mm 03/19/2024 5:15 PM CDT [facility] HEMOGLOBIN 15.7 13.5 - 17.5 g/dL 03/19/2024 5:15 PM CDT [facility] HEMATOCRIT 45.4 37.0 - 53.0 % 03/19/2024 5:15 PM CDT [facility] MCV 91 80 - 100 fL 03/19/2024 5:15 PM CDT [facility] MCH 31.5 26.0 - 34.0 pg 03/19/2024 5:15 PM CDT [facility] MCHC 34.6 32.0 - 36.0 g/dL 03/19/2024 5:15 PM CDT [facility] RDW 13.0 11.5 - 15.5 % 03/19/2024 5:15 PM CDT [facility] PLATELET COUNT 201 140 - 440 thou/cu mm 03/19/2024 5:15 PM CDT [facility] MPV 9.5 6.5 - 11.0 fL 03/19/2024 5:15 PM CDT [facility] % NEUT 83.9 % 03/19/2024 5:15 PM CDT [facility] % LYMPH 11.2 % 03/19/2024 5:15 PM CDT [facility] % MONO 4.4 % 03/19/2024 5:15 PM CDT [facility] % EOS 0.2 % 03/19/2024 5:15 PM CDT [facility] % BASO 0.3 % 03/19/2024 5:15 PM CDT [facility] ABSOLUTE NEUTROPHILS 8.2(H) 1.7 - 7.0 thou/cu mm 03/19/2024 5:15 PM CDT [facility] ABSOLUTE LYMPHOCYTES 1.1 0.9 - 2.9 thou/cu mm 03/19/2024 5:15 PM CDT [facility] ABSOLUTE MONOCYTES 0.4 <0.9 thou/cu mm 03/19/2024 5:15 PM CDT [facility] ABSOLUTE EOSINOPHILS 0.0 <0.5 thou/cu mm 03/19/2024 5:15 PM CDT [facility] ABSOLUTE BASOPHILS 0.0 <0.3 thou/cu mm 03/19/2024 5:15 PM CDT [facility] Blood BLOOD SPECIMEN / Unknown Venipuncture / Unknown 03/19/2024 5:06 PM CDT 03/19/2024 5:06 PM CDT Haritha Quiñonez MD HEMATOLOGY [facility] [place] [address], [place] [phone] * COLONOSCOPY (09/18/2019 8:31 AM EXCHANGE TROUBLE SHOOTER) 09/18/2019 8:31 AM EXCHANGE TROUBLE SHOOTER Narrative Transcriptions Jeromy Issa MD - 09/18/2019 [...] adequate candidate for conscious sedation. The [id number] was passed through the anus and advanced [...] reponse to care. Please refer to the [facility] flowsheets and nursing notes for moderate sedation details. Total physician intraservice time was 16 minutes. Jeromy Issa MD 09/18/2019 9:27:04 AM This report has been signed electronically. Note Initiated On: 09/18/2019 8:31 AM Procedure Code(s): --- Professional --- 36327, Colonoscopy, flexible; diagnostic, including collection of specimen(s) bybrushing or washing, when performed (separateprocedure) Diagnosis Code(s): --- Professional --- Z12.11, Encounter for screening formalignant neoplasm of colon CPT copyright 2018 [employer]. All rights reserved. The codes documented in this report are preliminary and upon hand filer balance wheel reviewmay be revised to meet current compliance requirements. Scope In: 9:09:13 AM Scope Withdrawal Time 0 hours 7 minutes 48 seconds Scope Out: 9:23:53 AM Jeromy Issa MD PROCEDURE ORD * ANTI HCV (08/10/2017 7:49 AM CDT) HEPATITIS C ANTIBODY Non-Reacti ve Non-Reacti ve 08/10/2017 3:49 PM CDT [facility] Blood BLOOD SPECIMEN / Unknown Venipuncture / Unknown 08/10/2017 7:49 AM CDT 08/10/2017 7:49 AM CDT Narrative [facility] - 08/10/2017 3:49 PM CDT Antibodies to HCV not detected; does not exclude the possibility of exposure to HCV. Mohit Kapadia MD [facility] [address] [place] [address], from Last 3 Months or Most Recently Relevant to Health Maintenance Advance Directives Documents on File Type Date Recorded Patient Service Car Driver Expl anation Healthcare Directive 09/10/2013 3:23 PM A JEFFERY AMBROSE, 09/04/2013 Care Teams Rigging Loft Mechanic Relationship Specialty Start Date End Date Shin Stack MD [address] [place] [address] PCP - General Family Practice 02/25/21
[2024-05-30] MEDS: LACTATED RINGERS 1000 ML 1,000 ML 100 ML IV ×2 (08:30→11:00)
[2024-05-30] MEDS: SODIUM CHLORIDE 0.9 % (FLUSH) 10 ML SYRINGE IVF (08:33)
[2024-05-30] MEDS: CEFAZOLIN 1 GM inj IVP (09:58)
[2024-05-30] MEDS: BUPIVACAINE 0.5% 30 ML INJECTION (11:01)
[2024-05-30] MEDS: LIDOCAINE 1 % PF 30 ML INJECTION (11:01)
--- NOTE | 2024-05-30 11:17 | W.ANESCHARGE ---
Anesthesia Charges Start Date/Time Anesthesia Start Date: 05/30/24 Anesthesia Start Time: 09:49 Stop Date/Time Anesthesia Stop Date: 05/30/24 Anesthesia Stop Time: 11:38 Summary Extremes of Age - Over 70 or under 1: [employer]
[2024-05-30] MEDS: LACTATED RINGERS 1000 ML 1,000 ML 75 ML IV (11:25)
--- NOTE | 2024-05-30 11:27 | P.GSOP_ITS ---
Operative Note Date of procedure: 05/30/24 Pre-op diagnosis: Recurrent right inguinal hernia Post-op diagnosis: Same Type of Procedure: Open repair recurrent right inguinal hernia Indications: The patient is a 73-year-old male who has a history of an incarcerated right inguinal hernia which occurred in [place] years ago. He underwent laparotomy and bowel resection as well as repair the right inguinal hernia. More recently the hernia had recurred. Incidentally when he presented to clinic to talk about his hernia he was having abdominal pain. A CT scan was obtained which showed that he had a small bowel obstruction. He was admitted to the hospital and had resolution of the bowel obstruction. Plans were then made for hernia repair. There are not records of his prior repair to know whether not mesh was used. Procedure Description: After discussing the risks and benefits of the procedure, the patient signed informed consent.? The operative site was marked and the patient was brought to the operating room and placed on the operating table in supine position.? Care was taken to pad the patient's pressure points.?? The patient was then intubated by anesthesia.?? The operative site was then prepped and draped in the usual sterile fashion.? A time-out was then performed. Local anesthetic was injected into the skin and subcutaneous tissue overlying the inguinal canal. An oblique incision was made over the external ring using a portion of the patient's prior hernia incision. Dissection was carried down into the subcutaneous tissue using cautery until the external oblique fascia was encountered. There was a fair amount of scar tissue in the subcutaneous fat, however the external oblique layer was able to be identified. This was cleared off. The external ring was identified. Then, using a Metzenbaum scissors, I carefully opened the external oblique, gently dissecting bluntly the tissue posteriorly away to avoid injury at any structures. The cord was adherent to the inside of the canal, particularly at the external ring. This was carefully dissected using a combination of sharp dissection with a Metzenbaum scissor and cautery. Care was taken not to injure any of the cord vessels. Once I had completely dissected the cord free, this was looped with a Rossford drain. The inguinal floor was palpated. There did appear to be mesh that was deep to scar tissue within the inguinal canal. It appeared intact to the pubic tubercle medially. Laterally, the internal ring was noted to be dilated. There was preperitoneal fat which had herniated through. This was densely adherent to the cord. The cord structures were also adherent in the area of the pubic tubercle the prior surgery. I dissected the preperitoneal fat carefully from the cord structures using a combination of blunt dissection and cautery. A small hernia sac was encountered. This had a wide base. It appeared as though there may be bowel contained within, and adherent to the wall of the hernia sac, suggesting a possible sliding hernia. I was able to dissect the hernia sac free from the cord structures and reduced this into the abdomen. A piece of Bard soft mesh was obtained and cut to size. This was secured to the pubic tubercle using to 0 Prolene on a double-armed suture. The Prolene was run along the inguinal ligament inferiorly and along the transversalis fascia superiorly, securing the tails around the cord and re-creating the internal ring. I ensured that the mesh was secured well to the dilate internal ring laterally. The ring was just large enough to permit my fingertip. The wound was examined for hemostasis which was found to be adequate. Of note, the ileo inguinal nerve was not visualized during the dissection, the cord structures were fairly scarred within the inguinal canal. The external oblique fascia was then reapproximated with absorbable suture. The wound was then closed in layers including Ariel's fascia and the dermis with absorbable suture. The skin was then closed with a running subcuticular suture. Sterile dressings were applied. Both testicles are present in the scrotum at the end the case. Instrument, sponge, and needle counts were correct at the end of the case. The patient was woken and taken to the PACU in stable condition. ? The patient tolerated the procedure well. Findings: 1. Recurrent indirect right inguinal hernia. Possibly sliding. 2. Prior hernia repair with mesh Implants: Bard soft mesh Anesthesia: GETA Surgeon: Haritha Quiñonez MD Estimated blood loss (mL): 5 Condition: stable Disposition: PACU
--- NOTE | 2024-05-30 11:27 | W.PM.H&PU ---
History & Physical Update History & Physical Update H&P Reviewed and patient assessed: No changes noted
--- NOTE | 2024-05-30 11:48 | W.ANESCHARGE ---
Anesthesia Charges Start Date/Time Anesthesia Start Date: 05/30/24 Anesthesia Start Time: 09:49 Stop Date/Time Anesthesia Stop Date: 05/30/24 Anesthesia Stop Time: 11:38 Summary Extremes of Age - Over 70 or under 1: MDA
--- NOTE | 2024-05-30 11:57 | SUR.PHASEI ---
Patient meets anesthesia discharge PACU criteria
== END 2024-05-30 13:08 | disposition home or self-care (01) ==
PROVIDERS: PCP Family Medicine; Visit Provider Surgery
PROC: (CPT 49520; principal; 2024-05-30 09:15)
DX: K40.91 Unilateral inguinal hernia, without obstruction or gangrene, recurrent (principal)
CPT/HCPCS: 49520; 830; 99100; C1781; J0330; J0665; J0690; J1100; J1170; J2001; J2405; J2704; J3010; J3490; J7120